=== PATIENT | male | born 1985 | race African-American/Black ===

== ENCOUNTER 2017-08-18 19:37 | Emergency (ER) | payer OTHER ==
[2017-08-18] MEDS ORDERED: IBUPROFEN 400 MG TABLET (FP) PO ONE ×2 (23:08→23:44)
[2017-08-18] MEDS ORDERED: METHOCARBAMOL 500 MG TABLET PO ONE (23:08)
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
[2017-08-18 23:23] VITALS: BP 119/76; PULSE 85; TEMP 98.4; BMI 32.6
[2017-08-18] MEDS ORDERED: METHOCARBAMOL 500 MG TABLET ONE (23:44)
== END 2017-08-19 02:00 | disposition home or self-care (01) ==
LOC: JER 19:37
DX: M51.16 Intervertebral disc disorders with radiculopathy, lumbar region (principal)
CPT/HCPCS: 72131-TC; 99282-25

== ENCOUNTER 2019-05-27 06:53 | Day surgery (SDC) | payer OTHER ==
[2019-05-26 13:45] VITALS: BMI 32.5
[2019-05-27] MEDS ORDERED: PROPOFOL 20 ML ONE (09:15)
[2019-05-27] MEDS ORDERED: MIDAZOLAM HCL 2 MG/2 ML SINGLE DOSE VIAL ONE (09:16)
[2019-05-27] MEDS ORDERED: BUPIVACAINE HCL/PF 0.5% (5MG/ML) 10 ML VIAL IJ ONE ×2 (09:24→09:33)
[2019-05-27] MEDS ORDERED: LIDOCAINE HCL 1%, 10 MG/ML (20ML VIAL) NR ONE ×2 (09:25→09:33)
[2019-05-27] MEDS ORDERED: BETAMET ACET/BETAMET NA PH 30 MG/5 ML VIAL IM ONE ×2 (09:25→09:33)
[2019-05-27] MEDS ORDERED: IOHEXOL 180 MG/1 ML ML IJ ONE ×2 (09:26→09:33)
[2019-05-27 11:34] VITALS: BP 128/77; PULSE 68; TEMP 97.9
--- NOTE | 2019-05-31 23:19 | PROC ---
Procedure Note Procedure: Date of service: 05/27/2019 Preoperative Diagnosis: Low back pain and lumbar radiculopathy on right /Left Postoperative Diagnosis: Same Procedure Performed: Lumbar Lumbar Facet Blocks on Right / Left l3-4/L4-5/ L5-S1 with dye under Fluoroscopy Anesthesia: Local / MAC Anesthesiologist: Procedure: I discussed with the patient in detail about the risks, benefits and alternatives to treatment not only limited to infection, headache, numbness, weakness and injury to nerves, spinal cord, blood vessels and muscles. The patient understood, agreed and signed the written consent. The patient was placed in the prone position with the head, abdomen and legs supported with the pillows. The patients lower back was prepped and draped in a sterile fashion. Under C-arm and Scottie dog view eye was identified the L2-3, L3-4 and L4-5 levels on Right side. At the level of L3-4 (L3), 2 ml of 2% Lidocaine was infiltrated into the skin and subcutaneous tissue. A 5 inch #23 guage spinal needle was used to approach the eye of the Scottie dog in the oblique view until the tip of the needle contacted the bone with the use of intermittent fluoroscopy. Needle placement was confirmed both in the AP and oblique view. Aspiration was done which was negative for blood. 0.20 ml of dye omnipaque was injected to see the spread of the dye. A solution of 0.5 ml of preservative- free 0.5% Marcaine was injected at this level. While the needle was withdrawn 1 ml of 2% Lidocaine was infiltrated. Similar procedure was repeated at Right L4-5 (L4) and L5-S1 (L5) and Left L3- S1 levels. The patient tolerated the procedure well. Bleeding was checked. There were no immediate complications. The patient was observed and asked about pain level. The patient mentioned that there was improvement was more than 90%. The patient was discgharged as per ASU criteria. The patient was told to apply ice at the injection sites. If there is any problem, call my office or report to the ER . Sudheer Alford M.D. CPT : 55646/97268 , Mod - 50 , Dx Lumbar Spondylosis.
== END 2019-05-27 11:00 | disposition home or self-care (01) ==
LOC: JASU-SURG 06:53
PROVIDERS: ATTEND Physical Medicine & Rehabilitation
PROC: 3E0T33Z Introduction of Anti-inflammatory into Peripheral Nerves and Plexi, Percutaneous Approach (ICD-10-PCS; 2019-05-27)
PROC: B01BYZZ Fluoroscopy of Spinal Cord using Other Contrast (ICD-10-PCS; 2019-05-27)
PROC: 3E0T3BZ Introduction of Anesthetic Agent into Peripheral Nerves and Plexi, Percutaneous Approach (ICD-10-PCS; principal; 2019-05-27 09:00)
DX: M47.26 Other spondylosis with radiculopathy, lumbar region (principal); M54.5 Low back pain
CPT/HCPCS: 76000-TC-FY

== ENCOUNTER 2020-08-23 04:19 | Day surgery (SDC) | payer OTHER ==
[2020-08-22 14:32] VITALS: BMI 33.3
[~2020-08-23 04:19] MED LIST: BUPIVACAINE HCL/PF 2.5 MG/ML - 30 ML VIAL IJ ONE; DEXAMETHASONE SOD PHOSPHATE 10 MG/1 ML VIAL IVPUSH ONE; IOHEXOL 180 MG/1 ML ML IJ ONE; LIDOCAINE HCL 1%, 10 MG/ML (20ML VIAL) INF ONE
[2020-08-23] MEDS ORDERED: LIDOCAINE HCL 1%, 10 MG/ML (20ML VIAL) ONE (07:31)
[2020-08-23] MEDS ORDERED: methylPREDNISolone ACET (DEPO) 40 MG/1 ML VIAL ONE (07:31)
[2020-08-23] MEDS ORDERED: BETAMET ACET/BETAMET NA PH 30 MG/5 ML VIAL ONE (07:32)
[2020-08-23] MEDS ORDERED: BUPIVACAINE HCL/PF 0.25% (2.5MG/ML) 10 ML VIAL ONE (07:32)
[2020-08-23] MEDS ORDERED: PROPOFOL 20 ML ONE (07:38)
[2020-08-23] MEDS ORDERED: SUCCINYLCHOLINE CHLORIDE 200 MG/10 ML SYRINGE ONE (07:38)
[2020-08-23] MEDS ORDERED: MIDAZOLAM HCL 2 MG/2 ML SINGLE DOSE VIAL ONE (09:21)
[2020-08-23] MEDS ORDERED: DEXAMETHASONE SOD PHOSPHATE/PF 10 MG/ML SDV ONE (09:29)
[2020-08-23] MEDS ORDERED: IOHEXOL 180 MG/1 ML ML IJ ONE ×2 (09:45)
[2020-08-23] MEDS ORDERED: DEXAMETHASONE SOD PHOSPHATE 10 MG/1 ML VIAL IVPUSH ONE ×2 (09:51)
[2020-08-23] MEDS ORDERED: LIDOCAINE HCL 1%, 10 MG/ML (20ML VIAL) INF ONE ×2 (09:51)
[2020-08-23] MEDS ORDERED: BUPIVACAINE HCL/PF 2.5 MG/ML - 30 ML VIAL IJ ONE ×2 (09:51)
[2020-08-23 10:25] VITALS: PULSE 74; TEMP 98
[2020-08-23] MEDS ORDERED: oxyCODONE HCL 5 MG TABLET PO PRN ×2 (10:51)
[2020-08-23] MEDS ORDERED: ACETAMINOPHEN 325 MG TABLET (FP) PO PRN (10:51)
[2020-08-23] MEDS ORDERED: ONDANSETRON 4 MG/2 ML VIAL IVPUSH PRN (10:51)
[2020-08-23 10:59] VITALS: BP 110/70
[2020-08-23] MEDS ORDERED: LACTATED RINGERS SOLUTION 1,000 ML IV SCH (11:00)
== END 2020-08-23 11:50 | disposition home or self-care (01) ==
LOC: JASU-SURG 04:19
PROVIDERS: ATTEND Physical Medicine & Rehabilitation
PROC: 3E0R33Z Introduction of Anti-inflammatory into Spinal Canal, Percutaneous Approach (ICD-10-PCS; 2020-08-23)
PROC: 3E0R3BZ Introduction of Anesthetic Agent into Spinal Canal, Percutaneous Approach (ICD-10-PCS; principal; 2020-08-23 09:00)
DX: M54.16 Radiculopathy, lumbar region (principal); M54.5 Low back pain
CPT/HCPCS: 76000-TC-FY; J1100